=== PATIENT | male | born 1935 | race African-American/Black ===

== ENCOUNTER 2016-10-28 16:21 | Emergency (ER) | payer MEDICARE, OTHER ==
--- NOTE | ~2016-10-28 | CR142 ---
[facility] A Service of [facility] RADIOLOGY TEXT RESULTS PATIENT: JULES ZAMBRANO LOCATION: [facility] : 37 UNIT #: [id number] AGE: [address]: Randa Lepe APRN SEX: M ORDER DR: [id number] [facility] [address] [place], [place] [address] [id number] E MR#: [id number] #: [id number] NAME: JULES ZAMBRANO. : 1935 SEX: M STUDY DATE/TIME: 10/28/2016 17:40 UNIT: [facility] ROOM: STUDY DESCRIPTION: CR Hand Min 3 Views Rt Attending Physician: Randa Lepe A.P.R.N. Ordering Physician: Ed Doctor [id number] [facility] Primary Care Physician: Thomas Casillas M.D. MEDICAL IMAGING REPORT This report is preliminary unless electronic signature is present EXAM 3 views of the right hand. DATE 10/28/2016 HISTORY Right hand and wrist pain and swelling since last Sunday. No known injury. 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 There is irregularity of the distal and radial margin of the scaphoid bone which appears chronic, with subchondral cystic change. There is probable mild to moderate degenerative change of the second through fifth proximal and distal interphalangeal joints, although they are not optimally assessed as they are in flexion. Diffuse right hand and wrist soft tissue swelling is present. IMPRESSION 1. 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 2. Diffuse right hand and wrist soft tissue swelling without evidence of acute osseous abnormality. Dictated by... Erin Rhodes M.D. [facility] A Service of [facility] RADIOLOGY TEXT RESULTS PATIENT: JULES ZAMBRANO LOCATION: [facility] : 37 UNIT #: [id number] AGE: [address]: Randa Lepe APRN SEX: M ORDER DR: THIS IS AN ELECTRONICALLY VERIFIED REPORT Erin Rhodes M.D. at 10/30/2016 6:16 AM DION/chance TD: 10/30/2016 01:20 JOB #: [id number] MEDICAL IMAGING REPORT Page 1 of 1 COPY
--- NOTE | ~2016-10-28 | CR282 ---
[facility] A Service of [facility] RADIOLOGY TEXT RESULTS PATIENT: JULES ZAMBRANO LOCATION: [facility] : 37 UNIT #: [id number] AGE: [address]: Randa Lepe APRN SEX: M ORDER DR: [id number] [facility] [address] [place], [place] [address] [id number] E MR#: [id number] Acc #: [id number] NAME: JULES ZAMBRANO. : 1935 SEX: M STUDY DATE/TIME: 10/28/2016 17:40 UNIT: [facility] ROOM: STUDY DESCRIPTION: CR Wrist Min 3 View Rt Attending Physician: Randa Lepe A.P.R.N. Ordering Physician: Ed Doctor [id number] [facility] Primary Care Physician: Thomas Casillas M.D. MEDICAL IMAGING REPORT This report is preliminary unless electronic signature is present EXAM 3 views right wrist. DATE 10/28/2016 HISTORY Severe right hand and wrist pain and right hand and wrist pain with swelling since last Sunday. No known injury. COMPARISON None. FINDINGS Advanced osteoarthritic changes are demonstrated within the first carpometacarpal junction, with more mild osteoarthritic changes within the scaphoid - trapezium junction and second carpometacarpal junction. Mild degenerative narrowing and spurring at the radiocarpal articulation. Diffuse right hand and wrist soft tissue swelling is present. There is mild irregularity along the radial cortical margin of the distal scaphoid bone, but this has a chronic appearance, with some subchondral cystic change. IMPRESSION 1. No acute osseous abnormality is seen within the right wrist. 2. Diffuse right wrist soft tissue swelling. 3. Osteoarthritic changes as described in the report, greatest at the first carpometacarpal junction. 4. Mild irregularity of the distal scaphoid bone is thought to be chronic and related to degenerative changes. 5. Right hand radiographs performed on the same date have been dictated [facility] A Service [facility] RADIOLOGY TEXT RESULTS PATIENT: JULES ZAMBRANO LOCATION: [facility] : 37 UNIT #: [id number] AGE: [address]: Radna Lepe APRN SEX: M ORDER DR: separately. Dictated by... Erin Rhodes M.D. THIS IS AN ELECTRONICALLY VERIFIED REPORT Erin Rhodes M.D. at 10/30/2016 6:16 AM DION/chance TD: 10/30/2016 01:14 JOB #: [id number] MEDICAL IMAGING REPORT Page 1 of 1 COPY
[2016-10-28 18:23] LABS: BASOPHIL# 0.1 X10e3 (0-0.3); BASOPHIL% 0.6 % (0-2.5); EOSINOPHIL# 0.2 X10e3 (0-0.7); EOSINOPHIL% 2.1 % (0.0-7.0); HEMATOCRIT 36.1 % (38.0-50.0); HEMOGLOBIN 12.1 gm/dL (13.0-16.0); LYMPHOCYTE# 1.9 X10e3 (1.0-3.5); LYMPHOCYTE% 19.8 % (17.0-45.0); MEAN CELL VOLUME 79.5 FL (83-96); MEAN CORPUSCULAR HEMOGLOBIN 26.6 PG (28-34); MEAN CORPUSCULAR HGB CONC 33.5 g/dL (30-36); MONOCYTE% 10.3 % (3.0-12.0); NEUTROPHIL# 6.6 X10e3 (1.5-7.1); NEUTROPHIL% 67.2 % (40-75); RED BLOOD COUNT 4.54 X10e (3.90-5.60); RED CELL DISTRIBUTION WIDTH 15.8 % (11.0-15.5); WHITE BLOOD COUNT 9.8 X10e3 (4.0-10.5)
[2016-10-28 18:35] LABS: ALBUMIN SERUM 3.9 g/dL (3.5-5.0); BILIRUBIN,TOTAL 1.2 mg/dL (0.2-2.0); CREATININE SERUM 0.8 mg/dL (0.6-1.4); GLOM FILT RATE Estimated 97.8 mL/min (>60); POTASSIUM 4.3 mmol/L (3.5-5.1); PROTEIN TOTAL SERUM 7.7 g/dL (6.0-8.3)
[2016-10-28 18:39] LABS: PLATELET COUNT 178 X10e3 (140-420)
[2016-10-28 18:40] LABS: DIFF IND NO
== END 2016-10-28 19:40 | disposition home or self-care (01) ==
LOC: CED 16:21 → CFTX 16:21
PROVIDERS: Nurse Practitioner
DX: L03.113 Cellulitis of right upper limb (principal); E11.9 Type 2 diabetes mellitus without complications; Z86.73 Personal history of transient ischemic attack (TIA), and cerebral infarction without residual deficits; Z98.890 Other specified postprocedural states; Z88.0 Allergy status to penicillin
CPT/HCPCS: 36415; 73110; 73130; 80053; 85025; 99283